=== PATIENT | female | born 1960 | race Hispanic/Latino ===

== ENCOUNTER 2016-09-07 10:23 | Emergency (ER) | payer OTHER ==
[2016-09-07 10:57] VITALS: BMI 28.7
--- NOTE | 2016-09-07 11:37 | C.PDOC ---
History Of Present Illness 56 year old female presents to the ED with complaints of swelling to bilateral lower extremities with difficulty ambulating. She states she took Motrin and Tylenol with minimal relief. Patient states approximately more than two years ago she fell while at work and has had knee pain ever since. She has a history of seizures. She notes following up with the clinic but has been non-compliant with seizure medications for two years. Prior records show multiple visits to the ED and clinic for left knee pain with last visit being in 2014. Patient states she has not sought treatment at any other location in the last two years and never compliant with instructions to follow up with orthopedist. She denies any recent trauma or other complaints at this time. As per patient, she has been out of work for 2 months and will need a clearance note to return. Apparently, she was following up with a doctor in [facility]. Time Seen by Provider: 09/07/16 10:52 Chief Complaint (Nursing): Lower Extremity Problem/Injury History Per: Patient History/Exam Limitations: no limitations Onset/Duration Of Symptoms: Persistent Current Symptoms Are (Timing): Still Present Pain Scale Rating Of: 5 Recent travel outside of the [facility]: No Additional History Per: Prior Records - Knee Currently Unable To: Bear Weight, Straighten Past Medical History Reviewed: Historical Data, Nursing Documentation, Vital Signs Vital Signs: Last Vital Signs Temp 97.7 F 09/07/16 12:48 Pulse 74 09/07/16 12:48 Resp 18 09/07/16 12:48 BP 112/71 09/07/16 12:48 Pulse Ox 96 09/07/16 12:48 - Medical History PMH: Anxiety, Asthma, Back Problems, Depression, Emphysema, Migraine, Seizures Surgical History: Cholecystectomy Family History: States: Unknown Family Hx - Social History Hx Tobacco Use: Yes Hx Alcohol Use: No Hx Substance Use: No - Immunization History Hx Tetanus Toxoid Vaccination: Yes Hx Influenza Vaccination: Yes Hx Pneumococcal Vaccination: Yes Review Of Systems Constitutional: Negative for: Fever, Chills Cardiovascular: Negative for: Chest Pain, Palpitations Respiratory: Negative for: Cough, Shortness of Breath Gastrointestinal: Negative for: Nausea, Vomiting, Abdominal Pain, Diarrhea Musculoskeletal: Positive for: Leg Pain (bilateral leg and knee pain, worse in the left knee ) Physical Exam - Physical Exam Appears: Non-toxic, No Acute Distress Skin: Warm, Dry Head: Atraumatic, Normacephalic Eye(s): bilateral: Normal Inspection, PERRL, EOMI Neck: Supple Chest: Symmetrical, No Deformity Cardiovascular: Rhythm Regular Respiratory: Normal Breath Sounds, No Rhonchi, No Wheezing Gastrointestinal/Abdominal: Soft, No Tenderness, No Distention, No Guarding, No Rebound Extremity: Normal ROM (decreased ROM due to pain), Tenderness (tenderness to the left knee), Capillary Refill (good capillary refill, less than 2 seconds ), Swelling (swelling to the left knee), Other (non-pitting edema to upper and lower extremities ) Neurological/Psych: Oriented x3 (awake, alert, and cooperative ) ED Course And Treatment O2 Sat by Pulse Oximetry: 95 (room air ) Progress Note: Patient's left knee was placed in MARCELLA wrap and ice was used to reduce swelling. Disposition Counseled Patient/Family Regarding: Diagnosis, Need For Followup, Rx Given - Disposition Disposition: HOME/ ROUTINE Disposition Time: 13:40 Condition: STABLE Additional Instructions: Follow up in clinic and with your regular doctor. Prescriptions: Ibuprofen [Motrin] 600 mg PO TID #15 tab Instructions: [facility] (ED) Forms: General Discharge Instructions - POA Present On Arrival: None - Clinical Impression Clinical Impression: Chronic pain of left knee - Scribe Statement The provider has reviewed the documentation as recorded by the Scribpaty Bojorquez All medical record entries made by the Jessicaibpaty were at my direction and personally dictated by me. I have reviewed the chart and agree that the record accurately reflects my personal performance of the history, physical exam, medical decision making, and the department course for this patient. I have also personally directed, reviewed, and agree with the discharge instructions and disposition.
[2016-09-07 12:52] VITALS: BP 112/71; PULSE 74; RESP 18; TEMP 97.7
[2016-09-07 13:39] VITALS: O2SAT 95
== END 2016-09-07 13:47 | disposition home or self-care (01) ==
LOC: C.ER 10:23
DX: G89.29 Other chronic pain (principal); M25.562 Pain in left knee
CPT/HCPCS: 94770; 97116; 97161; 99285; G8978; G8979; G8980

== ENCOUNTER 2017-03-02 20:06 | Emergency (ER) | payer OTHER ==
[2017-03-02 20:06] VITALS: BMI 24.0
[2017-03-02 20:37] VITALS: BP 129/80; PULSE 83; RESP 18; TEMP 98.8; O2SAT 95
--- NOTE | 2017-03-02 22:05 | C.PDOC ---
History Of Present Illness 56 y/o male presents ot the Ed c/o left knee,left shoulder, and upper arm pain. The patient states she was seen here before. The patient also states that her Orthopedist in [place] wanted her to have surgery back in November for the left knee Mares's cyst, but her niece did not make an appointment for her. The patient currently lives with her niece in [place] and wants to see a physician here for pain control. The patient denies dizziness, fever, and inflammation. Time Seen by Provider: 03/02/17 20:54 Chief Complaint (Nursing): Lower Extremity Problem/Injury History Per: Patient Onset/Duration Of Symptoms: Days Current Symptoms Are (Timing): Still Present Additional History Per: Patient Past Medical History Reviewed: Historical Data, Nursing Documentation, Vital Signs Vital Signs: Last Vital Signs Temp 98.8 F 03/02/17 20:31 Pulse 83 03/02/17 20:31 Resp 18 03/02/17 20:31 BP 129/80 03/02/17 20:31 Pulse Ox 95 03/02/17 22:20 - Medical History PMH: Anxiety, Asthma, Back Problems, Depression, Emphysema, Migraine, Seizures Denies: Chronic Kidney Disease Surgical History: Cholecystectomy Family History: States: No Known Family Hx - Social History Hx Tobacco Use: Yes Hx Alcohol Use: No Hx Substance Use: No - Immunization History Hx Tetanus Toxoid Vaccination: Yes Hx Influenza Vaccination: No Hx Pneumococcal Vaccination: No Review Of Systems Except As Marked, All Systems Reviewed And Found Negative. Constitutional: Negative for: Fever Cardiovascular: Negative for: Chest Pain Musculoskeletal: Positive for: Shoulder Pain (left ), Arm Pain (upper), Leg Pain (left knee) Skin: Negative for: Bruising Physical Exam - Physical Exam Appears: Non-toxic, No Acute Distress Skin: Warm, Dry Head: Atraumatic, Normacephalic Eye(s): bilateral: Normal Inspection Oral Mucosa: Moist Neck: Supple Chest: Symmetrical Cardiovascular: Rhythm Regular Back: No Vertebral Tenderness, No Paraspinal Tenderness Extremity: No Normal ROM (decreased ROM in the left kne due to pain), Tenderness (mild tenderness of the left shoulder and upper arm, left knee tenderness), No Calf Tenderness, No Deformity, Swelling (mild left knee swelling , no warmth and no erythema ) Neurological/Psych: Oriented x3, Normal Speech, Normal Cognition Gait: Steady ED Course And Treatment O2 Sat by Pulse Oximetry: 95 (RA) Progress Note: X-ray for the left knee, left shoulder, and humerus were done. Exam results no acute finding. The patient was instructed to follow up with orthopedist within 2-3 days for further evaluation. Disposition - Disposition Referrals: Rony Painting MD [Staff Provider] - Disposition: HOME/ ROUTINE Disposition Time: 22:18 Condition: STABLE Additional Instructions: Follow up with PMD and Orthopedist within 1-2 days. Return to ED if feel worse. Prescriptions: Ibuprofen [Motrin Tab] 600 mg PO Q8 #30 tab oxyCODONE/Acetaminophen [Percocet 5/325 mg Tab] 1 tab PO QID PRN #20 tab PRN Reason: Pain Instructions: Knee Pain (ED), Shoulder Pain (ED) Forms: [facility] (Azerbaijani) - Clinical Impression Clinical Impression: Knee pain, Shoulder pain - PA / FOAM TANK LAMINATOR / Resident Statement MD/DO has examined the patient and agrees with the treatment plan. - Scribe Statement The provider has reviewed the documentation as recorded by the Scribe Lin West
--- NOTE | 2017-03-03 04:21 | RAD ---
PROCEDURE: Radiographs of the Left Shoulder HISTORY: pain COMPARISON: None available. FINDINGS: BONES: No acute displaced fracture. The distal clavicle and underlying ribs appear intact. JOINTS: No acute dislocation. Glenohumeral joint space narrowing. SOFT TISSUES: Soft tissues appear unremarkable. No evidence of radiopaque foreign body. IMPRESSION: Glenohumeral joint space narrowing. No acute displaced fracture or dislocation evident. If symptoms persist or if there is continued clinical concern, x-ray follow-up in 7-10 days should be considered.
--- NOTE | 2017-03-03 04:27 | RAD ---
PROCEDURE: Radiographs of the left humerus. HISTORY: pain COMPARISON: None available. FINDINGS: BONES: No acute displaced fracture or dislocation. SOFT TISSUES: Unremarkable. No evidence of radiopaque foreign body. OTHER FINDINGS: None. IMPRESSION: No acute displaced fracture, dislocation, or significant joint effusion identified. If symptoms persist, or if there is continued clinical concern, x-ray follow-up in 7-10 days should be considered.
--- NOTE | 2017-03-03 04:29 | RAD ---
PROCEDURE: Left Knee Radiographs. HISTORY: COMPARISON: Left knee radiographs performed 09/18/14 FINDINGS: Examination markedly limited by habitus. BONES: No acute displaced fracture. JOINTS: No dislocation. JOINT EFFUSION: No significant joint effusion. OTHER FINDINGS: None. IMPRESSION: No acute displaced fracture, dislocation, or significant joint effusion identified. If symptoms persist, or if there is continued clinical concern, x-ray follow-up in 7-10 days should be considered.
== END 2017-03-02 22:24 | disposition home or self-care (01) ==
LOC: C.ER 20:06
DX: M25.512 Pain in left shoulder (principal); M25.562 Pain in left knee; Z87.891 Personal history of nicotine dependence

== ENCOUNTER 2017-11-24 11:30 | Emergency (ER) | payer MEDICARE ==
[2017-11-24 11:31] VITALS: BMI 32.6
--- NOTE | 2017-11-24 13:13 | C.PDOC ---
History Of Present Illness 57 years old female with PMHx of smoking, seizures, and emphysema presents to ED for complaints of bilateral lower extremity pain that began 2 years ago. Patient reports she fell on snow 2 years ago in February did not follow. Patient also states she was on medication (Percocet) for the first 4 months after fall then ran out and since than has used self treating ointments and medications for relief. Patient ambulates with assistance and is unable to work due to pain. Patient also states she used to live in a senior living and now lives with her uncle. Denies any other physical complaints. Patient has had multiple visits to ER this year for knee pain. As per previous visit in October, patient had an US done with results of left greater than right fluid in popliteal fossa diagnosed at Mares's Cyst and [facility] as per X-Ray. Also, prior to today's visit, patient was discharged from [place] with instructions to follow up with an orthopedic but has not done so. PMD: * Dr. Kareem Gamez Time Seen by Provider: 11/24/17 12:08 Chief Complaint (Nursing): Medical Clearance History Per: Patient History/Exam Limitations: no limitations Onset/Duration Of Symptoms: Days Current Symptoms Are (Timing): Still Present Recent travel outside of the [place] States: No Past Medical History Reviewed: Historical Data, Nursing Documentation, Vital Signs - Medical History PMH: Anxiety, Asthma, Back Problems, Depression, Emphysema, Migraine, Seizures Surgical History: Cholecystectomy Family History: States: Other Other Family History: Epilepsy(Mother) - Social History Hx Tobacco Use: Yes Hx Alcohol Use: No Hx Substance Use: No - Immunization History Hx Tetanus Toxoid Vaccination: Yes Hx Influenza Vaccination: No Hx Pneumococcal Vaccination: No Review Of Systems Constitutional: Negative for: Fever, Chills Gastrointestinal: Negative for: Nausea, Vomiting, Diarrhea Musculoskeletal: Positive for: Leg Pain (Bilateral ) Skin: Negative for: Rash Neurological: Negative for: Weakness, Numbness Physical Exam - Physical Exam Appears: Non-toxic, No Acute Distress, Other (In [place] ) Skin: Normal Color, Warm, Dry, No Rash Head: Atraumatic, Normacephalic Eye(s): bilateral: Normal Inspection, PERRL, EOMI Oral Mucosa: Moist Neck: Supple Chest: Symmetrical, No Tenderness Cardiovascular: Rhythm Regular, No Murmur Respiratory: Normal Breath Sounds, No Decreased Breath Sounds, No Rales, No Rhonchi, No Wheezing Gastrointestinal/Abdominal: Soft, No Tenderness, Other (Morbidly obese ) Extremity: No Deformity, Other (Pain to palpation in both lower extremities starting at mid thigh to ankles. No indication of trauma or edema ) Pulses: Left Dorsalis Pedis: Normal, Right Dorsalis Pedis: Normal Neurological/Psych: Oriented x3, Normal Speech Gait: With Assistance Medical Decision Making Medical Decision Making: Plan: * Motrin * Tylenol Progress: * Spoke with and he states he never seen the patient and advises to follow with an orthopedic. Disposition Discussed With : Delbert Gamez Counseled Patient/Family Regarding: Diagnosis - Disposition Referrals: Delbert Gamez MD [Staff Provider] - Rony Painting MD [Staff Provider] - Disposition: HOME/ ROUTINE Disposition Time: 14:23 Condition: STABLE Prescriptions: Naproxen [Naprosyn] 1 tab PO BID PRN #25 tab PRN Reason: Pain Instructions: Mares's Cyst (DC) Forms: [facility] (Andorran), General Discharge Instructions - POA Present On Arrival: None - Clinical Impression Clinical Impression: Cyst, Mares's knee - Scribe Statement The provider has reviewed the documentation as recorded by the Scribpaty Anna All medical record entries made by the Scribe were at my direction and personally dictated by me. I have reviewed the chart and agree that the record accurately reflects my personal performance of the history, physical exam, medical decision making, and the department course for this patient. I have also personally directed, reviewed, and agree with the discharge instructions and disposition.
[2017-11-24 13:58] VITALS: RESP 18; O2SAT 97
[2017-11-24 15:30] VITALS: BP 120/74; PULSE 60; TEMP 98.2
== END 2017-11-24 15:30 | disposition home or self-care (01) ==
LOC: C.ER 11:30
DX: M71.22 Synovial cyst of popliteal space [Baker], left knee (principal)

== ENCOUNTER 2017-12-07 12:08 | Emergency (ER) | payer MEDICARE ==
[2017-12-07 12:14] VITALS: BMI 31.2
[2017-12-07 12:17] VITALS: BP 110/75; PULSE 90; RESP 18; TEMP 98.5; O2SAT 97
--- NOTE | 2017-12-07 12:33 | C.PDOC ---
History Of Present Illness 57-year-old female w/PMhx of COPD, chronic B/L knees pain, presents to the emergency department with complaints of B/L knees pain. Patient states that her Right knee gives out on her at least 3 times a day. Patient admits, similar sx in past, was seen at different ED, " now have appointment with orho in 5 days. but today pain is the worse". Otherwise, pt denies fever, chills, headache, dizziness, visual changes, focal deficits, chest pain, shortness of breath, denies deformity, weakness To B/L lEs, denies swelling, recent travel, recent hospitalization or surgery. She denies any recent injuries. Ambulate to Ed with baseline gait, not in any apparent distress. Time Seen by Provider: 12/07/17 12:18 Chief Complaint (Nursing): Lower Extremity Problem/Injury History Per: Patient History/Exam Limitations: no limitations Past Medical History Reviewed: Historical Data, Nursing Documentation, Vital Signs Vital Signs: Last Vital Signs Temp 98.5 F 12/07/17 12:13 Pulse 90 12/07/17 12:13 Resp 18 12/07/17 12:13 BP 110/75 12/07/17 12:13 Pulse Ox 97 12/07/17 12:13 - Medical History PMH: Anxiety, Asthma, Back Problems, Depression, Emphysema, Migraine, Seizures Denies: Chronic Kidney Disease Surgical History: Cholecystectomy Family History: States: No Known Family Hx - Social History Hx Tobacco Use: Yes Hx Alcohol Use: No Hx Substance Use: No - Immunization History Hx Tetanus Toxoid Vaccination: Yes Hx Influenza Vaccination: No Hx Pneumococcal Vaccination: No Review Of Systems Constitutional: Negative for: Fever Gastrointestinal: Negative for: Nausea, Vomiting Musculoskeletal: Positive for: Leg Pain Neurological: Negative for: Weakness, Numbness Physical Exam - Physical Exam Appears: Well, Non-toxic, No Acute Distress Skin: Warm, Dry, No Rash, No Ecchymosis Neck: Normal ROM, Trachea Midline, Supple Extremity: Normal ROM (mild discomfort to Right knee flexion due to pain), Tenderness (mod over posterior aspect Right knee >Left. No skin changes, no palpable deformity.), Calf Tenderness (mild Right, none to left), Capillary Refill (less than 2sec to B/L feet), No Deformity, No Swelling Extremity: Bilateral: Atraumatic Neurological/Psych: Oriented x3, Normal Speech, Normal Motor, Normal Sensation, Normal Reflexes ED Course And Treatment O2 Sat by Pulse Oximetry: 97 Pulse Ox Interpretation: Normal (RA) - CT Scan/US Doppler US RLE Other Rad Studies (CT/US): Radiology Report Reviewed CT/US Interpretation: (-) for DVT Progress Note: On re-eval, pt is afebrile, hemodynamicaly stable. Non-toxic. Ambulatory in ED. Right knee: mod posterior tenderness. No edema, no erythema, no palpable deformity. FAROM, no neurovascular deficits. Doppler US (-) DVT at Right leg, (+) large Mares cyst. Pt advised and ref. to f/u with Ortho as scheduled for re-eavl. retrun if any new changes. Medical Decision Making Medical Decision Making: Plan: * Tramadol * Doppler * Reassess and Disposition Disposition Counseled Patient/Family Regarding: Studies Performed, Diagnosis, Need For Followup, Rx Given - Disposition Referrals: [facility] [Outside] Mickey Fountain III, MD [Staff Provider] - Disposition: HOME/ ROUTINE Disposition Time: 13:04 Condition: STABLE Additional Instructions: Knee brace for stability take pain medication as prescribed Follow up with Orthopedist as scheduled on 5 days for re-evaluation. return to ED if any new changes. Prescriptions: traMADol [Ultram] 50 mg PO Q12 #10 tab Instructions: Mares's (Popliteal) Cyst Forms: [employer] (Lao) - Clinical Impression Clinical Impression: Bakers cyst, Chronic pain of left knee, Chronic pain of right knee - Scribe Statement The provider has reviewed the documentation as recorded by the Scribe (Joe Herrera) All medical record entries made by the Scribe were at my direction and personally dictated by me. I have reviewed the chart and agree that the record accurately reflects my personal performance of the history, physical exam, medical decision making, and the department course for this patient. I have also personally directed, reviewed, and agree with the discharge instructions and disposition.
--- NOTE | 2017-12-12 10:18 | VASCLAB ---
Date of service: 12/07/2017 PROCEDURE: Right Lower Extremity Venous Duplex Exam. HISTORY: Right knee/calf pain PRIORS: None. TECHNIQUE: Right common femoral, femoral, popliteal and posterior tibial, peroneal and great saphenous veins were evaluated. Flow was assessed with color Doppler, compressibility, assessment of phasic flow and augmentation response. Report prepared by JANELL Chi, RVT FINDINGS: RIGHT: 1. Common Femoral Vein: 1.1. Compressibility - Fully compressible: Thrombus - None: Flow - Phasic: Augmentation -Normal: Reflux - None. 2. Femoral Vein: 2.1. Compressibility - Fully compressible: Thrombus - None: Flow - Phasic: Augmentation -Normal: Reflux - None. 3. Popliteal Vein: 3.1. Compressibility - Fully compressible: Thrombus - None: Flow - Phasic: Augmentation -Normal: Reflux - None. 4. Posterior Tibial Vein: 4.1. Compressibility - Fully compressible: Thrombus - None: Flow - Phasic: Augmentation -Normal: Reflux - None. 5. Peroneal Vein: 5.1. Compressibility - Fully compressible: Thrombus - None: Flow - Phasic: Augmentation -Normal: Reflux - None. 6. Great Saphenous Vein: 6.1. Compressibility - Fully compressible: Thrombus -None: Flow - Phasic: Augmentation - Normal: Reflux - None. OTHER FINDINGS: Anechoic non vascularized mass noted behind the right knee, possibly ramirez cyst. JEREMIAH Rodriguez notified about the findings. IMPRESSION: No evidence of deep or superficial vein thrombosis of the right lower extremity with excellent venous flow. Normal valve function noted of the right side. Normal venous flow noted in the left common femoral vein.
== END 2017-12-07 13:21 | disposition home or self-care (01) ==
LOC: C.ER 12:08
DX: M25.562 Pain in left knee (principal); M25.561 Pain in right knee; G89.29 Other chronic pain; M71.21 Synovial cyst of popliteal space [Baker], right knee

== ENCOUNTER 2018-02-07 12:06 | Emergency (ER) | payer MEDICARE ==
[2018-02-07 12:06] VITALS: BMI 31.2
[2018-02-07 12:19] VITALS: BP 109/72; PULSE 106; RESP 18; TEMP 97.7; O2SAT 95
--- NOTE | 2018-02-07 12:36 | C.PDOC ---
History Of Present Illness CC: Bilateral knee pain Patient is a 57 year old female with past medical history of depression, chronic bilateral knee pain (Mares's cyst), seizures and emphysema, who presents to the ED with complaints of bilateral knee pain that has been ongoing for 4 years. Patient was seen by Orthopedics, Dr. Orellana and was recommended for physical therapy, which is still ongoing and was given a walker and brace as well. Patient does have a follow up appointment in April with Dr. Orellana, however, patient wants a second opinion. As per patient, her pain is unchanged and she denies any symptoms of numbness or tingling. Time Seen by Provider: 02/07/18 12:23 Chief Complaint (Nursing): Lower Extremity Problem/Injury History Per: Patient History/Exam Limitations: no limitations Onset/Duration Of Symptoms: Waxing/Waning Current Symptoms Are (Timing): Still Present Severity: Moderate Pain Scale Rating Of: 7 Recent travel outside of the [place] States: No Additional History Per: Patient - Knee Description Of Injury: Other (Fell 4 years ago ) Alleviating Factor(s): Elevation, OTC Pain Medication Past Medical History Vital Signs: Last Vital Signs Temp 97.7 F 02/07/18 12:15 Pulse 106 H 02/07/18 12:15 Resp 18 02/07/18 12:15 BP 109/72 02/07/18 12:15 Pulse Ox 95 02/07/18 12:15 - Medical History PMH: Anxiety, Asthma, Back Problems, Depression, Emphysema, Migraine, Seizures Denies: Chronic Kidney Disease Surgical History: Cholecystectomy Family History: States: Unknown Family Hx - Social History Hx Tobacco Use: Yes Hx Alcohol Use: No Hx Substance Use: No - Immunization History Hx Tetanus Toxoid Vaccination: Yes Hx Influenza Vaccination: Yes Hx Pneumococcal Vaccination: Yes Review Of Systems Constitutional: Negative for: Fever, Chills Eyes: Negative for: Pain Cardiovascular: Negative for: Chest Pain, Palpitations Respiratory: Negative for: Shortness of Breath Gastrointestinal: Negative for: Nausea, Vomiting, Abdominal Pain, Diarrhea, Constipation, Hematochezia Genitourinary: Negative for: Dysuria, Frequency, Hematuria Skin: Negative for: Rash Neurological: Negative for: Numbness, Incoordination Physical Exam - Physical Exam Appears: No Acute Distress Skin: Normal Color, Warm Head: Atraumatic, Normacephalic Chest: Symmetrical Cardiovascular: Rhythm Regular, No Murmur Respiratory: Normal Breath Sounds, No Decreased Breath Sounds, No Accessory Muscle Use, No Rales, No Rhonchi, No Stridor, No Wheezing Gastrointestinal/Abdominal: Normal Exam, Bowel Sounds, No Soft, No Tenderness Back: Normal Inspection, No CVA Tenderness Extremity: Other (Decrease bilateral knee ROM, pain on flexion and extension ) Extremity: Bilateral: Painful To Bear Weight (Using a walker ) Pulses: Left Dorsalis Pedis: Normal, Right Dorsalis Pedis: Normal Neurological/Psych: Oriented x3, Normal Speech ED Course And Treatment O2 Sat by Pulse Oximetry: 95 Disposition Discussed With : Nadine Aceves - Disposition Referrals: Jennifer Herrera MD [Staff Provider] - Delbert Gamez MD [Staff Provider] - Disposition Time: 12:38 Condition: GOOD Additional Instructions: Please follow up with your primary care physician, Dr. Delbert Gamez Please continue to take your pain medication as prescribed by your PCP Please continue with all your other medications as prescribed by your PCP Please follow with Orthopedics, Dr. Herrera for a second opinion as your have requested Please continue to use your walker, brace and continue with physical therapy as recommended Please use ice pack as needed for joint relief Please take care Prescriptions: Naproxen 500 mg PO Q12H PRN #15 ect PRN Reason: Pain, Severe (8-10) Instructions: Mares's Cyst (DC), Chronic Knee Pain (DC), Knee Pain (DC) Forms: [facility] (Canadian), General Discharge Instructions - Clinical Impression Clinical Impression: Knee pain, Chronic pain of left knee, Bakers cyst, Chronic pain of right knee
[2018-02-07] MEDS ORDERED: Naproxen 550 mg Tab PO ONE ×2 (12:44→12:58)
== END 2018-02-07 13:05 | disposition home or self-care (01) ==
LOC: C.ER 12:06
DX: G89.29 Other chronic pain (principal); M25.561 Pain in right knee; M25.562 Pain in left knee; M71.20 Synovial cyst of popliteal space [Baker], unspecified knee

== ENCOUNTER 2018-03-21 14:16 | Outpatient (CLI) | payer MEDICARE | END 2018-03-21 14:17 | disposition home or self-care (01) | LOC: C.MRIC 14:16 ==